=== PATIENT | female | born 1955 | race Hispanic/Latino ===

== ENCOUNTER 2016-07-22 08:57 | Emergency (ER) | payer MEDICARE ==
[2016-07-22 09:08] VITALS: TEMP 98.3; BMI 42.1
--- NOTE | 2016-07-22 09:21 | ED PDOC ---
Arrival/HPI - General Chief Complaint: Back Pain Time Seen by Provider: 07/22/16 09:09 Historian: Patient - History of Present Illness Narrative History of Present Illness (Text): 07/22/16 09:18 61 year old female presents to the emergency department complaining of back pain after mechanical fall yesterday. She also reports some bruising to the right shoulder and knees. Patient states she is unsure if the bruising is related to the fall. No loss of consciousness. No other complaints at this time. PMD: Dr. Rodolfo Soriano 07/25/16 11:41 Time/Duration: 24 hours Symptom Onset: Sudden Symptom Course: Unchanged Modifying Factors (Text): None Associated Symptoms (Text): None Past Medical History - Provider Review Nursing Documentation Reviewed: Yes - Infectious Disease Hx of Infectious Diseases: None - Tetanus Immunization Tetanus Immunization: Unknown - Cardiac Hx Cardiac Disorders: Yes Hx Hypertension: Yes - Pulmonary Hx Asthma: Yes Hx Chronic Obstructive Pulmonary Disease (COPD): Yes Hx Emphysema: Yes - Neurological HX Cerebrovascular Accident: No Hx Seizures: Yes (1980 alcohol withdrawal) - HEENT Hx Difficulty Chewing: Yes (dentures) Hx Epistaxis: Yes - Renal Hx Renal Disorder: Yes Hx Kidney Stones: Yes (left lower kidney) - Endocrine/Metabolic Hx Hypothyroidism: Yes - Hematological/Oncological Hx Cancer: No - Integumentary Hx Dermatological Disorder: No - Musculoskeletal/Rheumatological Hx Arthritis: Yes Hx Fractures: Yes (left ankle, skull, jaw) - Gastrointestinal Hx Gall Bladder Disease: Yes - Genitourinary/Gynecological Hx Sexually Transmitted Diseases: Yes (herpes) - Psychiatric Hx Anxiety: Yes Hx Bipolar Disorder: Yes Hx Depression: Yes Hx Schizophrenia: Yes (schizophrenia affective disorder) Hx Substance Use: Yes - Past Surgical History Past Surgical History: No Previous - Surgical History Hx Cholecystectomy: Yes - Anesthesia Hx Anesthesia: Yes Hx Anesthesia Reactions: No - Suicidal Assessment Feels Threatened In Home Enviroment: No Family/Social History - Physician Review Nursing Documentation Reviewed: Yes Family/Social History: Unknown Family HX Smoking Status: Current Some Days Smoker 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) Hx Substance Use: Yes Substance used: alcohol cocaine Hx Substance Use Treatment: Yes Allergies/Home Meds Allergies/Adverse Reactions: Allergies haloperidol [From Haldol] Allergy (Verified 03/23/16 10:53) RASH haloperidol lactate [From Haldol] Allergy (Verified 03/23/16 10:53) RASH Home Medications: Home Meds Medication Instructions Recorded Confirmed Gabapentin [Neurontin] 400 mg PO HS 03/23/16 07/08/16 Montelukast Sodium [Singulair] 10 mg PO DAILY 03/23/16 07/08/16 clonazePAM [clonAZEPAM] 1 mg PO TID 03/23/16 03/23/16 Duloxetine HCl [Duloxetine] 30 mg PO DAILY 07/08/16 07/08/16 Levothyroxine [Synthroid] 100 mcg PO DAILY 07/08/16 07/08/16 OLANZapine [Zyprexa] 10 mg PO DAILY 07/08/16 07/08/16 traZODone [trazodone Hydrochloride] 2 tab PO HS 07/08/16 07/08/16 Review of Systems - Physician Review All systems were reviewed & negative as marked: Yes - Review of Systems Respiratory: absent: SOB Cardiovascular: absent: Chest Pain Gastrointestinal: absent: Abdominal Pain, Vomiting Musculoskeletal: Back Pain Skin: Other (Bruising to right shoulder and knee) Neurological: absent: Dizziness Physical Exam Vital Signs Reviewed: Yes Vital Signs Temp Pulse Resp BP Pulse Ox 07/22/16 13:23 74 18 129/71 99 07/22/16 12:45 75 18 135/69 99 07/22/16 11:50 79 18 138/71 99 07/22/16 10:48 97 H 18 145/76 98 07/22/16 09:04 98.3 F 106 H 16 148/88 97 Temperature: Afebrile Blood Pressure: Normal Pulse: Tachycardic Respiratory Rate: Normal Appearance: Positive for: Well-Appearing, Non-Toxic, Comfortable Pain Distress: None Mental Status: Positive for: Alert and Oriented X 3 - Systems Exam Head: Present: Atraumatic, Normocephalic Pupils: Present: PERRL Extroacular Muscles: Present: EOMI Conjunctiva: Present: Normal Mouth: Present: Moist Mucous Membranes Neck: Present: Normal Range of Motion Respiratory/Chest: Present: Clear to Auscultation, Good Air Exchange. No: Respiratory Distress, Accessory Muscle Use Cardiovascular: Present: Regular Rate and Rhythm, Normal S1, S2. No: Murmurs Abdomen: Present: Normal Bowel Sounds. No: Tenderness, Distention, Peritoneal Signs Back: Present: Paraspinal Tenderness (Right lower paraspinal tenderness) Upper Extremity: Present: Normal ROM, Other (Ecchymosis to right shoulder). No : Cyanosis, Edema, Swelling, Erythema Lower Extremity: Present: Normal ROM, Other (Minimal ecchymosis to the knees). No: Edema, Swelling, Erythema Neurological: Present: GCS=15, CN II-XII Intact, Speech Normal Skin: Present: Warm, Dry, Normal Color. No: Rashes Psychiatric: Present: Alert, Oriented x 3, Normal Insight, Normal Concentration Medical Decision Making ED Course and Treatment: Impression: 61 year old female presents to the emergency department complaining of back pain after mechanical fall yesterday. also c/o of increased brusing (? related to fall, pt poor historian reports brusing unrelated to fall)- r/o underlying plt, coag abnormality Differential Diagnosis include but are not limited to: Plan: -- XR l-spine, XR rt shoulder -- Labs -- Reassess and disposition Prior Visits: Notes and results from previous visits were reviewed. Patient has previous psychiatric history including schizophrenia. Patient last seen in ED on for elevated blood pressure and discharged home. Progress Notes: 07/22/16 12:31 noted lfts, ct added for further eval. neg. imaging, plts, coags normal, stablef or d/c. advise outpt f/u. notified of results of lfts - Lab Interpretations Microbiology Results: Microbiology Results 07/22/16 13:30 Urine,Clean Catch Urine Culture - Final 10-50,000 CFU/ML. MULTIPLE SPECIES. PROBABLE CONTAMINATION. Lab Results: 07/22/16 09:43 07/22/16 09:43 Lab Results 07/22/16 13:00: Urine Color Yellow, Urine Appearance Cloudy, Urine pH 6.0, Ur Specific [place] 1.025, Urine Protein Trace H, Urine Glucose (UA) Negative, Urine Ketones Negative, Urine Blood Trace-intact H, Urine Nitrate Negative, Urine Bilirubin Negative, Urine Urobilinogen 0.2, Ur Leukocyte Esterase Moderate H, Urine RBC 0 - 2, Urine WBC Tntc, Ur Epithelial Cells 6 - 8, Urine Bacteria Many 07/22/16 09:43: WBC 7.8, RBC 3.47 L, Hgb 11.1 L, Hct 32.6 L, MCV 93.9, MCH 32.0 , MCHC 34.0, RDW 16.1 H, Plt Count 232, MPV 9.6, Gran % 58.9, Lymph % (Auto) 30.3, [place] % (Auto) 5.0, Eos % (Auto) 5.5 H, Baso % (Auto) 0.3, Gran # 4.60, Lymph # 2.4, [place] # 0.4, Eos # 0.4, Baso # 0.02, PT 10.6, INR 0.98, APTT 27.5, Sodium 136, Potassium 4.4, Chloride 106, Carbon Dioxide 25, Anion Gap 9 L, BUN 13, Creatinine 0.5, Est GFR ( Amer) > 60, Est GFR (Non-Af Amer) > 60, Random Glucose 149 H, Calcium 8.2 L, Total Bilirubin 0.9, AST 1154 H, ALT 960 H , Alkaline Phosphatase 218 H, Total Protein 6.0, Albumin 3.0, Globulin 2.9, Albumin/Globulin Ratio 1.0 L, Lipase 265 - RAD Interpretation Narrative RAD Interpretations (Text): PROCEDURE: Radiographs of the Right Shoulder Aligner : Rosi Murphy MD HISTORY: Fall COMPARISON: No prior. FINDINGS: BONES: There is no acute fracture. There is mild diffuse bone demineralization. Bone alignment is normal. JOINTS: There is mild degenerative osteoarthrosis in the glenohumeral and acromioclavicular joints. SOFT TISSUES: Normal. OTHER FINDINGS: None. IMPRESSION: No acute fracture or dislocation. PROCEDURE: Radiographs of the Lumbar Spine. Aligner : Rosi Murphy MD HISTORY: Fall COMPARISON: No prior. FINDINGS: BONES: There is mild dextrocurvature in the lumbar spine. There is normal alignment of the lumbar vertebral bodies. Lumbar lordosis is maintained. Vertebral bodies are normal in height. There is diffuse bone demineralization. DISC SPACES: There is multilevel degenerative disc disease with anterior osteophytes, reduced disc heights and multilevel facet arthropathy, worse at L5-S1. OTHER FINDINGS: There are advanced atherosclerotic calcifications in the abdominal aorta. Surgical clips in the right upper quadrant are related to prior cholecystectomy.Both sacroiliac joints are normal. There are no pathologic soft tissue calcifications. IMPRESSION: No acute fracture. Multilevel degenerative disc disease, worse at L5-S1. Radiology Orders: 07/22/16 09:17 LS SPINE AP/LAT [RAD] Stat SHOULDER RIGHT [RAD] Stat 07/22/16 10:48 ABD & PELVIS IV CONTRAST ONLY [CT] Stat Network Intelligence Analyst: Radiologist - Medication Orders Current Medication Orders: Discontinued Medications Home Med (*Refrigerator Open) Confirm Administered Dose 1 unit XX .STK-MED ONE Stop: 07/22/16 16:48 Iohexol (Omnipaque 350 100 Ml) Confirm Administered Dose 350 mg .ROUTE .STK-MED ONE Stop: 07/22/16 11:05 Morphine Sulfate (Morphine) 4 mg IM STAT STA Stop: 07/22/16 11:36 Last Admin: 07/22/16 11:55 Dose: 4 MG MAR Pain Assessment Document 07/22/16 11:55 SF (Rec: 07/22/16 11:55 SF [id number]) Pain Reassessment Is this a pain reassessment? Yes Sleep Is patient sleeping during reassessment? No Presence of Pain Presence of Pain Yes IM Administration Charges Document 07/22/16 11:55 SF (Rec: 07/22/16 11:[address] [facility] [id number] Charges for Administration # of IM Administrations 1 Nitrofurantoin Macrocrystals (Macrobid) 100 mg PO STAT STA Stop: 07/22/16 13:52 Last Admin: 07/22/16 14:07 Dose: 100 MG - Scribe Statement The provider has reviewed the documentation as recorded by the Frieda Espinal Provider Scribe Attestation: All medical record entries made by the Diegoibsean were at my direction and personally dictated by me. I have reviewed the chart and agree that the record accurately reflects my personal performance of the history, physical exam, medical decision making, and the department course for this patient. I have also personally directed, reviewed, and agree with the discharge instructions and disposition. Disposition/Present on Arrival - Present on Arrival Any Indicators Present on Arrival: No History of DVT/PE: No History of Uncontrolled Diabetes: No Urinary Catheter: No History of Decub. Ulcer: No History Surgical Site Infection Following: None - Disposition Have Diagnosis and Disposition been Completed?: Yes Diagnosis: Fall, Back pain, Bruise Disposition: HOME/ ROUTINE Disposition Time: 12:31 Condition: STABLE Discharge Instructions (ExitCare): Fall Prevention (ED), Acute Low Back Pain ( ED) Additional Instructions: please follow up your doctor. return to er with worsening symptoms or concerns. please see specialist to discuss liver tests. Prescriptions: Cyclobenzaprine [Cyclobenzaprine HCl] 10 mg PO TID PRN #20 tab PRN Reason: Muscle Spasm Nitrofurantoin Macrocrystals [Macrobid] 100 mg PO BID #14 cap Referrals: Andrew Dugan Jr., MD [Primary Care Provider] - Follow up with primary Angel Brown MD [Staff Provider] - Follow up with primary
[2016-07-22] MEDS ORDERED: Morphine 4 mg/ml ISec IVP STA (09:55)
[2016-07-22 09:56] LABS: ADD MANUAL DIFF? NO
[2016-07-22 10:02] LABS: BASO # 0.02 K/mm3 (0.0-2.0); BASO % 0.3 % (0.0-3.0); EOS # 0.4 (0.0-0.7); EOS % 5.5 % (1.5-5.0); GRAN % 58.9 % (50.0-68.0); HEMATOCRIT 32.6 % (36.0-48.0); LYMPH # 2.4 (1.2-3.4); LYMPH % 30.3 % (22.0-35.0); MEAN CELL VOLUME 93.9 fL (80.0-105.0); MEAN PLATELET VOLUME 9.6 fl (7.0-11.0); MONO # 0.4 (0.1-0.6); PLATELET COUNT 232 10^3/uL (120.0-450.0); RED CELL DISTRIBUTION WIDTH 16.1 % (11.5-14.5); WHITE BLOOD COUNT 7.8 10^3/ul (4.5-11.0)
[2016-07-22 10:11] LABS: INR 0.98 (0.93-1.08); PARTIAL THROMBOPLASTIN TIME 27.5 Seconds (23.7-30.8)
[2016-07-22 10:14] LABS: ALKALINE PHOSPHATASE 218 U/L (38-133); ALT/SGPT 960 U/L (7-56); BILIRUBIN,TOTAL 0.9 mg/dL (0.2-1.3); BLOOD UREA NITROGEN 13 mg/dL (7-21); CALCIUM 8.2 mg/dL (8.4-10.5); CARBON DIOXIDE 25 mmol/L (21-33); CHLORIDE 106 mmol/L (98-107); GFR AFRICAN-AMERICAN > 60; GLUCOSE,RANDOM 149 mg/dL (70-110); POTASSIUM 4.4 mmol/L (3.6-5.0); SODIUM 136 mmol/L (132-148)
[2016-07-22 10:24] LABS: AST/SGOT 1154 U/L (15-39)
[2016-07-22 10:49] VITALS: RESP 18
[2016-07-22 10:55] LABS: LIPASE 265 U/L (23-300)
[2016-07-22] MEDS ORDERED: Iohexol 350 MG/100 ML VIAL ONE (11:04)
[2016-07-22] MEDS ORDERED: Morphine 4 mg/ml ISec IM STA (11:35)
--- NOTE | 2016-07-22 11:37 | RAD ---
PROCEDURE: Radiographs of the Right Shoulder HISTORY: Fall COMPARISON: No prior. FINDINGS: BONES: There is no acute fracture. There is mild diffuse bone demineralization. Bone alignment is normal. JOINTS: There is mild degenerative osteoarthrosis in the glenohumeral and acromioclavicular joints. SOFT TISSUES: Normal. OTHER FINDINGS: None. IMPRESSION: No acute fracture or dislocation.
--- NOTE | 2016-07-22 11:39 | RAD ---
PROCEDURE: Radiographs of the Lumbar Spine. HISTORY: Fall COMPARISON: No prior. FINDINGS: BONES: There is mild dextrocurvature in the lumbar spine. There is normal alignment of the lumbar vertebral bodies. Lumbar lordosis is maintained. Vertebral bodies are normal in height. There is diffuse bone demineralization. DISC SPACES: There is multilevel degenerative disc disease with anterior osteophytes, reduced disc heights and multilevel facet arthropathy, worse at L5-S1. OTHER FINDINGS: There are advanced atherosclerotic calcifications in the abdominal aorta. Surgical clips in the right upper quadrant are related to prior cholecystectomy.Both sacroiliac joints are normal. There are no pathologic soft tissue calcifications. IMPRESSION: No acute fracture. Multilevel degenerative disc disease, worse at L5-S1.
[2016-07-22 11:51] VITALS: O2SAT 99
--- NOTE | 2016-07-22 12:24 | CT ---
PROCEDURE: CT Abdomen and Pelvis with contrast HISTORY: abd pain elevated lfts COMPARISON: None. TECHNIQUE: Contrast dose: 100 cc of Omni 350 Radiation dose: Total exam DLP = 1133 mGy-cm. FINDINGS: LOWER THORAX: Coronary artery calcifications are seen. There is a small bulla at the left lung base LIVER: Unremarkable. No gross lesion or ductal dilatation. GALLBLADDER AND BILE DUCTS: Gallbladder removed. Common bile duct within normal limits of size PANCREAS: Unremarkable. No gross lesion or ductal dilatation. SPLEEN: Unremarkable. ADRENALS: Unremarkable. No mass. KIDNEYS AND URETERS: Unremarkable. No hydronephrosis. No solid mass. VASCULATURE: Unremarkable. No aortic aneurysm. BOWEL: Unremarkable. No obstruction. No gross mural thickening. APPENDIX: Normal appendix. PERITONEUM: Unremarkable. No free fluid. No free air. LYMPH NODES: Unremarkable. No enlarged lymph nodes. BLADDER: Unremarkable. REPRODUCTIVE: Unremarkable. BONES: No acute fracture. OTHER FINDINGS: None. IMPRESSION: No acute findings
[2016-07-22 13:23] VITALS: BP 129/71; PULSE 74
[2016-07-22 13:36] LABS: URINE BILIRUBIN NEGATIVE (NEGATIVE); URINE BLOOD TRACE-INTACT (NEGATIVE); URINE GLUCOSE (UA) NEGATIVE (NEGATIVE); URINE KETONE NEGATIVE (NEGATIVE); URINE LEUKOCYTE ESTERASE MODERATE Leu/uL (NEGATIVE); URINE PROTEIN TRACE mg/dL (<30 mg/dL); URINE UROBILINOGEN 0.2 E.U./dL (<1 E.U./dL)
[2016-07-22 13:37] LABS: URINE APPEARANCE CLOUDY (CLEAR); URINE COLOR YELLOW (YELLOW)
[2016-07-22 13:43] LABS: URINE BACTERIA MANY (NEG); URINE RBC 0 - 2 /hpf (0-2); URINE WBC TNTC /hpf (0-6)
== END 2016-07-22 14:12 | disposition home or self-care (01) ==
LOC: ED 08:57
DX: M54.9 Dorsalgia, unspecified (principal); S40.011A Contusion of right shoulder, initial encounter; S80.01XA Contusion of right knee, initial encounter; W19.XXXA Unspecified fall, initial encounter; I10 Essential (primary) hypertension; F17.210 Nicotine dependence, cigarettes, uncomplicated
CPT/HCPCS: 72100; 73030; 74177; 80053; 81001; 83690; 85025; 85610; 85730; 87086; 96372; 99285; J2270; Q9967